=== PATIENT | male | born 1965 | race Caucasian/White ===

== ENCOUNTER 2022-07-20 11:09 | Outpatient (CLI) | payer OTHER, SELFPAY ==
[2022-07-20 11:59] LABS: Cholesterol* 128 mg/dL (90-199)
[2022-07-20 12:00] LABS: Alanine Aminotransferase* 37 U/L (4-50); HDL Cholesterol* 37 mg/dL (>=40); LDL Cholesterol Calculated 56 mg/dL (<100); Triglycerides* 176 mg/dL (40-149)
== END 2022-07-20 11:10 | disposition home or self-care (01) ==
LOC: NFLDREF 11:10
PROVIDERS: PCP Family Medicine; Visit Provider Family Medicine
DX: E78.5 Hyperlipidemia, unspecified (principal); I10 Essential (primary) hypertension; E11.9 Type 2 diabetes mellitus without complications
CPT/HCPCS: 80061; 84460

== ENCOUNTER 2022-09-21 09:30 | Outpatient (CLI) | payer OTHER, SELFPAY | END 2022-09-21 09:31 | disposition home or self-care (01) | LOC: FBOREF 09:30 | PROVIDERS: PCP Family Medicine; Visit Provider Family Medicine | DX: I10 Essential (primary) hypertension (principal); E11.9 Type 2 diabetes mellitus without complications; E78.5 Hyperlipidemia, unspecified | CPT/HCPCS: 80048 ==

== ENCOUNTER 2023-07-05 08:33 | Outpatient (CLI) | payer OTHER, SELFPAY | END 2023-07-05 08:34 | disposition home or self-care (01) | LOC: FBOREF 08:34 | PROVIDERS: PCP Family Medicine; Visit Provider Family Medicine | DX: E78.5 Hyperlipidemia, unspecified (principal); I10 Essential (primary) hypertension; E11.9 Type 2 diabetes mellitus without complications; Z12.5 Encounter for screening for malignant neoplasm of prostate | CPT/HCPCS: 80048; 80061; 84153; 84460 ==

== ENCOUNTER 2024-07-18 08:16 | Outpatient (CLI) | payer OTHER, SELFPAY ==
[2024-07-18 13:46] LABS: Creatinine Urine 96.5 mg/dL
[2024-07-18 13:48] LABS: Microalbumin Creatinine Ratio 100 mg/g (0-30); Microalbumin Urine 10 mg/dL
== END 2024-07-18 08:17 | disposition home or self-care (01) ==
PROVIDERS: PCP Family Medicine; Visit Provider Family Medicine
DX: E11.9 Type 2 diabetes mellitus without complications (principal); E78.2 Mixed hyperlipidemia; I10 Essential (primary) hypertension; E11.29 Type 2 diabetes mellitus with other diabetic kidney complication; R80.9 Proteinuria, unspecified; Z79.4 Long term (current) use of insulin; Z12.5 Encounter for screening for malignant neoplasm of prostate
CPT/HCPCS: 80048; 80061; 82043; 82570; 84460; 84550; G0103

== ENCOUNTER 2024-10-12 12:56 | Outpatient (CLI) | payer OTHER, SELFPAY | END 2024-10-12 12:57 | disposition home or self-care (01) | PROVIDERS: PCP Family Medicine; Visit Provider Family Medicine | DX: E78.2 Mixed hyperlipidemia (principal); I10 Essential (primary) hypertension; E11.9 Type 2 diabetes mellitus without complications; Z79.4 Long term (current) use of insulin | CPT/HCPCS: 80048; 85025 ==

== ENCOUNTER 2025-07-23 09:13 | Outpatient (CLI) | payer OTHER, SELFPAY | END 2025-07-23 09:14 | disposition home or self-care (01) | PROVIDERS: PCP Family Medicine; Visit Provider Family Medicine | DX: E11.9 Type 2 diabetes mellitus without complications (principal); E78.2 Mixed hyperlipidemia; I10 Essential (primary) hypertension; Z79.4 Long term (current) use of insulin; Z12.5 Encounter for screening for malignant neoplasm of prostate | CPT/HCPCS: 80048; 80061; 84460; G0103 ==